=== PATIENT | female | born 1980 | race Hispanic/Latino ===

== ENCOUNTER 2017-06-02 09:37 | Emergency (ER) | END 2017-06-02 12:02 | disposition home or self-care (01) | LOC: ERS 09:37 | DX: M06.9 Rheumatoid arthritis, unspecified (principal) | CPT/HCPCS: 99283 ==

== ENCOUNTER 2017-06-04 14:20 | Emergency (ER) | payer SELFPAY ==
[2017-06-04] MEDS ORDERED: Dexamethasone 4 mg/ml Vial ONE (15:04)
== END 2017-06-04 15:26 | disposition home or self-care (01) ==
LOC: ERS 14:20
DX: M06.9 Rheumatoid arthritis, unspecified (principal); G89.29 Other chronic pain; M25.561 Pain in right knee; M25.562 Pain in left knee; Z79.899 Other long term (current) drug therapy
CPT/HCPCS: 96372; J1100